=== PATIENT | male | born 1985 | race Caucasian/White ===

== ENCOUNTER 2018-10-27 07:42 | Day surgery (SDC) | payer OTHER ==
[~2018-10-27] VITALS: Ht 172.7 cm; Wt 86.2 kg
--- NOTE | 2018-10-27 11:48 | NUR ---
10/27/18 1148 Kate Peter 1140: PT ARRIVES TO PACU AWAKE AND ALERT ON 3 L O2 VIA NC. PT RESP EVEN AND UNLABORED. PT DENIES ANY PAIN IN THROAT, BUT STATES HIS SHOULDER "ACHES A LITTLE." PT HAS HICCUPS ON ARRIVAL.
--- NOTE | 2018-10-27 14:40 | OR ---
[facility] [address] [place], [place] [address] Signed DATE OF OPERATION: 10/27/2018 SURGEON: Beverley Glass MD PREOPERATIVE DIAGNOSIS: Severe epigastric and substernal pain. Clinical findings were gastroesophageal reflux. POSTOPERATIVE DIAGNOSES: 1. Severe distal ulcerative esophagitis with hiatal hernia. 2. Bulbar duodenitis. PROCEDURE: Esophagogastroduodenoscopy with biopsy. ANESTHESIA: Intravenous sedation, fentanyl 100 mcg, Versed 5 mg. INDICATION: This 33-year-old white man is a patient of [place] and was referred with longstanding gastroesophageal reflux symptoms. The patient takes no medications for this problem. The symptoms include substernal burning pain as well as nighttime regurgitation. He has had over 10 years of the symptoms and keeps a bottle of Tums by his bed, which he must take sometimes late at night. He was formally seen by Dr. Herrmann who prescribed PPI medication. Somehow he was bothered by side effects, which he cannot elucidate at this time. He has no associated dysphagia. He does have continuous regurgitation depending over. He has had no hematemesis. He is admitted at this time to undergo upper endoscopy to better characterize the problem. He understand the risks of bleeding, infection, perforation, and so on. FINDINGS: Severe distal ulcerative esophagitis was noted. There was no sign of Newman's epithelium or stricture or neoplasm. There was a hiatal hernia. The stomach was normal, though the duodenal bulb was markedly inflamed, but without sign of ulceration. CLOtest was negative 15 minutes post procedure. DESCRIPTION OF PROCEDURE: The patient was brought to the endoscopy suite and placed in lateral decubitus position given intravenous sedation to the point of slurred speech and nystagmus after topical Hurricaine spray hypopharyngeal anesthesia. A bite block was placed. An Olympus video upper endoscope was passed in the hypopharynx. The vocal cords appeared normal though Electronically Signed By: BEVERLEY GLASS MD 10/27/18 1440 PATIENT NAME: JIMENA PATTERSON OPERATIVE REPORT DATE OF : [birth year] REPORT #: [id number] PHYSICIAN: BEVERLEY GLASS MD PCP: MARYANNE PIPER PA-C REPORT IS CONFIDENTIAL AND NOT TO BE RELEASED WITHOUT AUTHORIZATION [facility] [address] [place], [place] [address] Signed the arytenoid processes were somewhat edematous. The scope was advanced to the esophagus. The upper portion and midportion were normal, but the distal port showed linear ulcerations and clearly chronic ulcerative esophagitis. There was no stricture or Newman's epithelium. Narrow band imaging was normal. The scope was advanced to the stomach, which was insufflated with air. Rugal folds were normal. Antral motility appeared normal. Pylorus was normal. Scope was passed through into the duodenum. Bulbar duodenitis was noted. The 2nd and 3rd portions were normal. Biopsies were taken of both. Scope was withdrawn to the stomach and biopsies taken of the antrum for both BRIAN and pathologic testing. Retroflexed view was undertaken showing a sizable hiatal hernia. There was no sign of gastric varices. The scope was withdrawn to the distal esophagus and biopsies taken of the ulcerative areas thoroughly. Scope was withdrawn to the mid esophagus where biopsies were also obtained. The scope was carefully withdrawn and removed, and the patient taken to recovery room in good condition. CONCLUDING DIAGNOSIS: Severe ulcerative esophagitis. PLAN: We will prescribe Prilosec 40 mg daily for 7 days and convert to 20 mg daily. He may be a candidate for operative intervention given a spontaneous regurgitation and so forth. If he proves to be intolerant to PPI medications at this time, a different avenue will be chosen, probably an H2 conchis. MD RHAE Pineda/VIKL /[id number] cc: Maryanne Piper PA-C Copies: MARYANNE PIPER PA-C ~ Electronically Signed By: BEVERLEY GLASS MD 10/27/18 1440 PATIENT NAME: JIMENA PATTERSON OPERATIVE REPORT DATE OF : [birth year] REPORT #: [id number] PHYSICIAN: BEVERLEY GLASS MD PCP: MARYANNE PIPER PA-C REPORT IS CONFIDENTIAL AND NOT TO BE RELEASED WITHOUT AUTHORIZATION
== END 2018-10-27 12:15 | disposition home or self-care (01) ==
LOC: OPS 07:42 → DS 07:42 → OPS 09:30
PROVIDERS: Surgery
PROC: 0DB78ZX Excision of Stomach, Pylorus, Via Natural or Artificial Opening Endoscopic, Diagnostic (ICD-10-PCS; 2018-10-27)
PROC: 0DB28ZX Excision of Middle Esophagus, Via Natural or Artificial Opening Endoscopic, Diagnostic (ICD-10-PCS; 2018-10-27)
PROC: 0DB38ZX Excision of Lower Esophagus, Via Natural or Artificial Opening Endoscopic, Diagnostic (ICD-10-PCS; 2018-10-27)
PROC: 0DB98ZX Excision of Duodenum, Via Natural or Artificial Opening Endoscopic, Diagnostic (ICD-10-PCS; principal; 2018-10-27 10:15)
DX: K22.10 Ulcer of esophagus without bleeding (principal); K21.0 Gastro-esophageal reflux disease with esophagitis; K29.80 Duodenitis without bleeding; K31.9 Disease of stomach and duodenum, unspecified; K44.9 Diaphragmatic hernia without obstruction or gangrene; F10.20 Alcohol dependence, uncomplicated
CPT/HCPCS: 99153; G0500; J2250; J3010; J7120

== ENCOUNTER 2018-12-28 20:11 | Emergency (ER) | payer OTHER ==
[~2018-12-28] VITALS: Ht 172.7 cm; Wt 86.2 kg
[2018-12-28] MEDS ORDERED: PRILOSEC10 M1 PO (20:25)
[2018-12-28] MEDS ORDERED: NORCO 5-325 TA1 EACH PO (20:59)
[2018-12-29] MEDS ORDERED: CETIRIZINE HCL10 MG PO (10:32)
== END 2018-12-28 21:30 | disposition home or self-care (01) ==
LOC: ED 20:11
DX: S82.841A Displaced bimalleolar fracture of right lower leg, initial encounter for closed fracture (principal); K21.9 Gastro-esophageal reflux disease without esophagitis; X50.1XXA Overexertion from prolonged static or awkward postures, initial encounter
CPT/HCPCS: 73610; 96372; 99283-25; J2270; J2550

== ENCOUNTER 2019-01-01 09:45 | Day surgery (SDC) | payer OTHER ==
[~2019-01-01] VITALS: Ht 172.7 cm; Wt 86.2 kg
[~2019-01-01 09:45] MED LIST: CETIRIZINE HCL10 MG PO; NORCO 5-325 TA1 EACH PO; PRILOSEC10 M1 PO
[2019-01-01] MEDS ORDERED: NORCO 7.5-3251 EACH PO (14:13)
--- NOTE | 2019-01-01 14:40 | NUR ---
01/01/19 1440 Sheets,Ami 1410 PT ARRIVED TO PACU DROWSY AND RESP EVEN AND UNLABORED. PT TALKING BUT VERY DROWSY. 1415 PT SITTING UP IN BED AND REPORTS PAIN /10. O2 MASK REMVOED. 1420 PAIN MEDICAITON GIVEN PER EMAR. 01/22 "IT HURTS." 1432 PAIN MEDICATION GIVEN PER EMAR. 12/22 PAIN. 1438 PT SITTING IN HIGH FOLWERS AND REPORTS PAIN /10 AND TOELRABLE AT THIS TIME. ICE PLACE ON RIGHT FOOT WITH BOOT IN PLACE.
--- NOTE | 2019-01-01 15:04 | NUR ---
PT RETURNS TO DS ROOM 5 FROM PACU ON ROOM AIR. PT DENIE S NAUSEA AND REPORTS 3/10 PAIN. VSS. DISCUSSED DC CRITERIA WITH PT AND PROVIDED HIM WITH WATER. FAMILY AT BEDSIDE. CALL LIGHT WITHIN REACH.
--- NOTE | 2019-01-01 15:41 | NUR ---
PT UP TO VOID. TOE TOUCH/HEEL TOUCH FOR BALANCE. USES CRUTCHES WITHOUT ASSISTANCE AND TOLERATES AMBULATION. PT ABLE TO VOID 350 ML WITHOUT DIFFICULTY. PT BACK TO BED. WARM BLANKET PROVIDED. PT TOLERATES PO FLUIDS AND FOOD. PT MEDICATED FOR PAIN AND GABAPENTIN PER ORDERS GIVEN SEE EMAR. PT MEETS DC CRITERIA. WILL MONITOR FOR DECREASED PAIN LEVEL BEFORE PT DISCHARGES TO HOME. CALL LIGHT WITHIN REACH
--- NOTE | 2019-01-01 16:27 | NUR ---
PT MEETS DC CRITERIA. DC INSTRUCTIONS WITH PRECAUTIONS PROVIDED. PT VERBALIZES UNDERSTANDING AND DENIES FURTHER QUESTIONS. PRESCRIPTION WITH EDUCATION GIVEN. IV DC'D WNL. VSS. PT DENEIS NAUSEA AND REPORTS MINIMAL 2/10 PAIN AT OPERATIVE SITE. PT TO RETRN TO DR. HORTA OFFICE NEXT WEEK FOR FOLLOW UP. PT TRANSPORTED IN WHEELCHAIR TO VEHILCE DRIVEN BY FATHER, IN STABLE CONDITION.
--- NOTE | 2019-01-02 07:51 | OR ---
[facility] [address] [place], [place] [address] Signed DATE OF OPERATION: 01/01/2019 SURGEON: Omaira Su MD PREOPERATIVE DIAGNOSIS: Right bimalleolar ankle fracture. POSTOPERATIVE DIAGNOSIS: Right bimalleolar ankle fracture. PROCEDURE PERFORMED: Open reduction and internal fixation of right bimalleolar ankle. BIODIESEL PRODUCT MANAGER: Mary Dan PA-C. Mary was present critical for all portions of the procedure. ANESTHESIA: General with blocks. TOURNIQUET TIME: 14 minutes. BLOOD LOSS: Minimal. IMPLANTS: 3 x 130 FibuLock with two screws and a three-hole hook plate with two screws medially. BRIEF HISTORY: Leadnro is a 33-year-old gentleman who tripped in a shop and fell fracturing his ankle and dislocating it. He reduced it himself, went to the ER, where radiographs showed a bimalleolar fracture dislocation. He was placed in a boot and referred to us. Risks and benefits of operative treatment discussed with him and he elected to proceed. Once consent was obtained, he was taken to the operating room. After adequate anesthesia, he was placed on operating table with a well-padded proximal thigh tourniquet. Leg was prepped and draped in a standard sterile fashion. The leg was exsanguinated using Esmarch bandage. The FibuLock laterally was placed before the tourniquet was placed. Fibula was marked out using image intensifier. The starting incision 1 cm long was made distal to the tip of the fibula. This was then carried down to the tip. The guidewire Electronically Signed By: OMAIRA SU MD 01/02/19 0751 PATIENT NAME: LEANDRO PATTERSON OPERATIVE REPORT DATE OF : 81 REPORT #: [id number] PHYSICIAN: OMAIRA SU MD PCP: ZACK CALDERON PA-C REPORT IS CONFIDENTIAL AND NOT TO BE RELEASED WITHOUT AUTHORIZATION [facility] [address] [place], [place] [address] Signed was advanced from the tip of the fibula into the shaft and over-reamed with the bigger reamer. The second guide calderon was then placed up the fibula and the long reamer 3.1 reamer was taken proximally. The calderon was then placed in the wound distally and advanced up the fibula. Prior to this, we did reduce the fracture and hold it with a clamp percutaneously. The calderon was placed until was well-seated and then the proximal pins were deployed. Two locking screws were placed percutaneously distally. Once this was accomplished, leg was exsanguinated and tourniquet inflated to 250 mmHg. A longitudinal incision was made medially, carried through skin and subcutaneous tissue. The large anteromedial fragment was then identified and cleared off soft tissue and periosteum. It was then reduced with a clamp and pinned. The hook plate was then fashioned to fit the malleolus and held with a proximal screw. This screw from the tip of the plate up the malleolus into the body of the tibia was then placed again under direct image intensifier guidance. The screws were tightened and final radiograph showed excellent reduction and the wounds were copiously irrigated with antibiotic solution, closed with 3-0 Monocryl and russel and dressed with Mepilex Ag dressing, ABD, and Ehsan wrap. He was placed back into his fracture, was taken to recovery room in satisfactory condition. All sponge, needle, and instrument counts correct. Omaira Su MD BA/VIKL /[id number] Copies: ~ Electronically Signed By: OMAIRA SU MD 01/02/19 0751 PATIENT NAME: LEANDRO PATTERSON OPERATIVE REPORT DATE OF : [birth year] REPORT #: [id number] PHYSICIAN: OMAIRA SU MD PCP: ZACK CALDERON PA-C REPORT IS CONFIDENTIAL AND NOT TO BE RELEASED WITHOUT AUTHORIZATION
== END 2019-01-01 16:20 | disposition home or self-care (01) ==
LOC: DS 09:45 → OPS 09:45 → DS 15:00 → OPS 15:00
PROVIDERS: Specialist
PROC: 0QSJ04Z Reposition Right Fibula with Internal Fixation Device, Open Approach (ICD-10-PCS; 2019-01-01)
PROC: 0QSG04Z Reposition Right Tibia with Internal Fixation Device, Open Approach (ICD-10-PCS; principal; 2019-01-01 15:00)
DX: S82.841A Displaced bimalleolar fracture of right lower leg, initial encounter for closed fracture (principal); K21.9 Gastro-esophageal reflux disease without esophagitis; W01.0XXA Fall on same level from slipping, tripping and stumbling without subsequent striking against object, initial encounter
CPT/HCPCS: 01480; 64445; 64450; 73600; J0690; J0735; J1100; J1885; J2250; J2405; J2704; J2765; J3010; J7120

== ENCOUNTER 2024-07-03 06:21 | Day surgery (SDC) | payer OTHER ==
[~2024-07-03] VITALS: Ht 172.7 cm; Wt 86.4 kg
[~2024-07-03 06:21] MED LIST changes: +MIDAZOLAM HCL 5 MG/5 ML VIAL IV PRN; +NORCO 7.5-3251 EACH PO; +fentaNYL citrate 100 MCG/2 ML VIAL IV PRN
[2024-07-03] MEDS ORDERED: fentaNYL citrate 100 MCG/2 ML VIAL ONE (06:38)
[2024-07-03] MEDS ORDERED: MIDAZOLAM HCL 5 MG/5 ML VIAL ONE (06:38)
[2024-07-03 06:39] VITALS: BP 140/82
--- NOTE | 2024-07-03 06:57 | NUR ---
JIMENA WAITING WITH PT Eduarda MASON.
[2024-07-03] MEDS ORDERED: LIDOCAINE HCL 4% 50 ML BTL TOP SCH (07:00)
[2024-07-03] MEDS ORDERED: LIDOCAINE HCL 1% 5 ML SDV INJ ONE (07:00)
[2024-07-03] MEDS ORDERED: LACTATED RINGER'S 1,000 ML IV SCH (07:00)
[2024-07-03] MEDS ORDERED: IBLOOD GLUCOSE TEST STRIP 1 EA TEST VI PRN (07:00)
--- NOTE | 2024-07-03 07:53 | NUR ---
07/03/24 0753 Maryam Chase OXYGEN SATURATION REMAINS 100% ON 3L VIA NC. OXYGEN IS TURNED OFF AT THIS TIME.
--- NOTE | 2024-07-03 07:54 | NUR ---
PT GONE FOR PROCEDURE. VISITED WITH SUPPORT PERSON IN ROOM. NO IMMEDIATE NEEDS. CATTLE KNOCKER PROVIDED SUPPORTIVE PRESENCE, HOSPITALITY, PRAYER, FACILITATED INTERACTION WITH THERAPY ANIMAL.
[2024-07-03 08:16] VITALS: BP 118/86
--- NOTE | 2024-07-04 10:27 | OR ---
[facility] [address] [place], [place] [address] Signed DATE OF OPERATION: 07/03/2024 SURGEON: Beverley Glass MD PREOPERATIVE DIAGNOSIS: Gastroesophageal reflux with medical management. POSTOPERATIVE DIAGNOSIS: Single focus of Newman epithelium, distal esophagus with small hiatal hernia. PROCEDURE: Esophagogastroduodenoscopy with biopsy. ANESTHESIA: Intravenous sedation; fentanyl 100 mcg and Versed 4 mg. INDICATIONS: This 39-year-old white man is a patient of [place]NA [place]. He underwent upper endoscopy by me in 2019 and has been treated medically with Prilosec. He takes 20 mg two tabs daily. He can avoid reflux symptoms altogether if he avoid eating late. He does not smoke or drink alcohol. He is admitted at this time to undergo upper endoscopy for surveillance also in consideration of possible operative management. The risk of bleeding, infection, and perforation have been reviewed with him. He understands and wished to proceed. FINDINGS: He had a single focus of Newman epithelium in the distal esophagus. The mucosa itself was otherwise normal. There was no evidence of the eosinophilic esophagitis. A poor flap valve consistent with small hiatal hernia was also noted. Stomach and duodenum were normal. CLOtest was negative 15 minutes post procedure. DESCRIPTION OF PROCEDURE: The patient was brought to the surgical endoscopy suite placed in lateral decubitus position after undergoing topical lidocaine hypopharyngeal anesthesia. He was given intravenous sedation to the point of slurred speech and nystagmus with full cardiopulmonary monitoring. A bite block was placed. An Olympus video upper endoscope was passed into the hypopharynx. Vocal cords appeared normal. The posterior arytenoid fold had minimal inflammation. Scope was advanced to the esophagus without problem, throughout its length it appeared normal except in the Electronically Signed By: BEVERLEY GLASS MD 07/04/24 1027 PATIENT NAME: JIMENA PATTERSON OPERATIVE REPORT DATE OF : [birth year] REPORT #: [id number] PHYSICIAN: BEVERLEY GLASS MD PCP: MARYANNE PIPER PA-C REPORT IS CONFIDENTIAL AND NOT TO BE RELEASED WITHOUT AUTHORIZATION [facility] [address] [place], [place] [address] Signed very distal portion where small island of Newman epithelium was noted. The scope was passed into the stomach, which was insufflated with air. There was no sign of bile. Rugal folds were normal. The antrum was normal as was the pylorus. The scope was passed through into the duodenum, which was normal. Biopsies were taken of the second portion though the mucosa was normal. The scope was withdrawn and biopsy was then taken of the antrum for both BRIAN and pathologic testing. Retroflexed view was undertaken showing a poor flap valve, though no sign of large hiatal hernia. Retroflexed view in withdrawal allowed easy visualization of the esophageal mucosa further confirmatory of a poor flap valve. The scope was straightened and withdrawn and biopsies were then taken independently of the focus of Newman epithelium, and subsequently the esophageal mucosa proper. A midesophageal biopsy was taken upon removal of the scope. There was no sign of more proximal Newman epithelium. Scope was removed. The patient was taken to the recovery room in good condition. CONCLUDING DIAGNOSIS: Gastroesophageal reflux symptoms with small focus of Newman epithelium medically managed well with PPI medication. PLAN: He will see me back in 6-8 weeks, at which point we will review his pathology reports and review his options which might include anti-reflux operation in the future. For now, he will continue omeprazole as he is doing. MD RHEA Pineda/JOANIE /[id number] cc: Maryanne Piper PA-C Copies: MARYANNE PIPER PA-C ~ Electronically Signed By: BEVERLEY GLASS MD 07/04/24 1027 PATIENT NAME: JIMENA PATTERSON OPERATIVE REPORT DATE OF : [birth year] REPORT #: [id number] PHYSICIAN: BEVERLEY GLASS MD PCP: MARYANNE PIPER PA-C REPORT IS CONFIDENTIAL AND NOT TO BE RELEASED WITHOUT AUTHORIZATION
--- NOTE | 2024-07-05 18:55 | PATH ---
[facility] [address] [place], [place] [address] Signed SPECIMEN(S): A DUODENAL BIOPSY SPECIMEN(S): B ANTRUM BIOPSY SPECIMEN(S): C DISTAL ESOPHAGEAL BIOPSY SPECIMEN(S): D DISTAL ESOPHAGEAL BIOPSY SPECIMEN(S): E MID ESOPHAGEAL BIOPSY SPECIMEN SOURCE: A. DUODENAL BIOPSY B. ANTRUM BIOPSY C. DISTAL ESOPHAGEAL BIOPSY D. DISTAL ESOPHAGEAL BIOPSY E. MID ESOPHAGEAL BIOPSY CLINICAL HISTORY: Reflux with esophagitis FINAL PATHOLOGIC DIAGNOSIS: A. Duodenum, biopsy: - Duodenal mucosa with normal villous architecture. - June's glands are present. - Negative for acute, chronic, and granulomatous inflammation. - Negative for dysplasia and malignancy. B. Stomach, antrum, biopsy: - Gastric antral-type mucosa. - Negative for chronic, acute, and active inflammation. - No H. pylori-like organisms identified on routine HE-stained histologic sections. - Negative for intestinal metaplasia, dysplasia, and malignancy. C. Distal esophagus, biopsy: - Gastroesophageal junctional-type mucosa. - Squamous component with mild to moderate congestion in the rete peg vessels and no inflammation. - Glandular component with mild superficial chronic inflammation in the lamina propria. - Negative for intestinal metaplasia, dysplasia, and malignancy. D. Distal esophagus, biopsy: - Gastroesophageal junctional-type mucosa. - Squamous component with mild congestion in the rete peg vessels and no inflammation. - Lower component with mild superficial chronic inflammation in the lamina PATIENT NAME: JIMENA PATTERSON PATHOLOGY DATE OF : [birth year] REPORT #: [id number] PHYSICIAN: [facility] PATHOLOGY PCP: ZACK CALDERON PA-C REPORT IS CONFIDENTIAL AND NOT TO BE RELEASED WITHOUT AUTHORIZATION [facility] [address] [place], [place] [address] Signed propria. - Negative for intestinal metaplasia, dysplasia, and malignancy. E. Mid esophagus, biopsy: - Stratified squamous esophageal mucosa. - Negative for acute, chronic, and eosinophilic inflammation. - Negative for dysplasia and malignancy. COMMENT: As a part of [facility]' Record Press Operator program, Specimen C has been reviewed by a second pathologist. SDL MICROSCOPIC EXAMINATION: Histologic sections of all submitted blocks are examined by light microscopy. These findings, together with the gross examination, support the pathologic diagnosis. GROSS DESCRIPTION: A. The specimen, labeled and designated "Jarvie, duodenal biopsy," is received in formalin and consists of one youssef soft tissue fragment, 0.4 cm. Entirely submitted in (A1). B. The specimen, labeled and designated "Jarvie, antrum biopsy," is received in formalin and consists of two youssef soft tissue fragments, ranging from 0.3-0.4 cm. Entirely submitted in (B1). C. The specimen, labeled and designated "Jarvie, distal esophageal biopsy," is received in formalin and consists of one youssef soft tissue fragment, 0.6 cm. Entirely submitted in (C1). D. The specimen, labeled and designated "Jarvie, distal esophageal biopsy," is received in formalin and consists of three youssef soft tissue fragments, ranging from 0.4-0.8 cm. Entirely submitted in (D1). E. The specimen, labeled and designated "Jarvie, mid esophageal biopsy," is received in formalin and consists of two youssef soft tissue fragments, ranging from 0.5-0.6 cm. Entirely submitted in (E1). VB (under the direct supervision of a pathologist) The Gross Description was prepared using a voice recognition system. The report was reviewed for accuracy; however, sound-alike word errors, addition and/or deletions may occur. If there is any question about this report, please contact Client Services. ADDITIONAL NOTES: PATIENT NAME: JIMENA PATTERSON PATHOLOGY DATE OF : [birth year] REPORT #: [id number] PHYSICIAN: JUSTICE MCGREGOR PCP: ZACK CALDERON PA-C REPORT IS CONFIDENTIAL AND NOT TO BE RELEASED WITHOUT AUTHORIZATION [address] [address] Signed Immunohistochemical and/or in situ hybridization studies if performed in this case included appropriate positive controls that reacted as expected. This test was developed and its performance characteristics determined by [facility]. It has not been cleared or approved by the U.S. Food and Drug Administration. The FDA has determined that such clearance or approval is not necessary. This test is used for clinical purposes. It should not be regarded as investigational or for research. [facility] is certified under the Clinical Laboratory Improvement Amendments of 1988 (CLIA) as qualified to perform high complexity clinical laboratory testing. PERFORMING LABORATORY: Technical component was performed by [facility], [address] [place] [id number] (CLIA# [id number]). Professional interpretation was performed by [facility], [address] [place] [id number] (IA#: [id number]). Diagnostician: Jacqui Jacob MD Pathologist Electronically Signed 07/05/2024 Copies: ~ PATIENT NAME: JIMENA PATTERSON PATHOLOGY DATE OF : [birth year] REPORT #: [id number] PHYSICIAN: JUSTICE PATHOLOGY PCP: ZACK CALDERON PA-C REPORT IS CONFIDENTIAL AND NOT TO BE RELEASED WITHOUT AUTHORIZATION
== END 2024-07-03 08:25 | disposition home or self-care (01) ==
LOC: DS 06:21
PROVIDERS: ATTEND Surgery
PROC: 0DB68ZX Excision of Stomach, Via Natural or Artificial Opening Endoscopic, Diagnostic (ICD-10-PCS; 2024-07-03)
PROC: 0DB38ZX Excision of Lower Esophagus, Via Natural or Artificial Opening Endoscopic, Diagnostic (ICD-10-PCS; 2024-07-03)
PROC: 0DB98ZX Excision of Duodenum, Via Natural or Artificial Opening Endoscopic, Diagnostic (ICD-10-PCS; principal; 2024-07-03 07:30)
DX: K21.00 Gastro-esophageal reflux disease with esophagitis, without bleeding (principal); K44.9 Diaphragmatic hernia without obstruction or gangrene; Z86.59 Personal history of other mental and behavioral disorders
CPT/HCPCS: 99153; G0500; J2250; J3010; J7121

== ENCOUNTER 2025-04-15 15:26 | Emergency (ER) | payer OTHER ==
[~2025-04-15] VITALS: Ht 172.7 cm; Wt 90.0 kg
[~2025-04-15 15:26] MED LIST changes: -MIDAZOLAM HCL 5 MG/5 ML VIAL IV PRN; -fentaNYL citrate 100 MCG/2 ML VIAL IV PRN
[2025-04-15] MEDS ORDERED: AMOX TR-K CLV1 EAC1 PO (18:25)
[2025-04-15 18:39] VITALS: BP 100/82
== END 2025-04-15 18:40 | disposition home or self-care (01) ==
LOC: ED 15:26
DX: S61.452A Open bite of left hand, initial encounter (principal); K21.9 Gastro-esophageal reflux disease without esophagitis; Z79.899 Other long term (current) drug therapy; W54.0XXA Bitten by dog, initial encounter
CPT/HCPCS: 99283